=== PATIENT | female | born 1955 ===

== ENCOUNTER 2019-08-20 10:58 | Outpatient (CLI) | payer SELFPAY ==
--- NOTE | 2019-08-20 12:07 | RAD ---
PA AND LATERAL CHEST: HISTORY: Severe persistent reactive airways disease. COMPARISON: 08/28/2010 FINDINGS: The heart size is border. The aorta is tortuous. No focal areas of consolidation, pneumothoraces or p leural effusions are seen. IMPRESSION: No acute process. POS: [facility]
--- NOTE | 2019-08-20 12:13 | RAD ---
SINUSES THREE VIEWS: HISTORY: Severe persistent reactive airways disease. FINDINGS: The paranasal sinuses are well aerated. No air-fluid levels are seen. POS: [facility]
== END 2019-08-20 10:59 | disposition home or self-care (01) ==
LOC: BICRAD 10:58
PROVIDERS: ATTEND Internal Medicine
DX: J45.50 Severe persistent asthma, uncomplicated (principal)
CPT/HCPCS: 70220; 71046

== ENCOUNTER 2020-01-06 16:07 | Emergency (ER) | payer OTHER, SELFPAY | END 2020-01-06 18:08 | disposition home or self-care (01) | LOC: ERS 16:07 | DX: J01.90 Acute sinusitis, unspecified (principal); K08.89 Other specified disorders of teeth and supporting structures; J45.909 Unspecified asthma, uncomplicated | CPT/HCPCS: 87081; 87430; 99283 ==